=== PATIENT | female | born 1950 | race Caucasian/White ===

== ENCOUNTER 2021-04-04 01:08 | Emergency (ER) | payer MEDICARE ==
[2021-04-04] MEDS ORDERED: NIFEDIPINE ER30 M3 PO (01:23)
[2021-04-04] MEDS ORDERED: CEPHALEXIN250 MG PO (02:22)
[2021-04-04 02:32] VITALS: BP 154/90
== END 2021-04-04 02:32 | disposition home or self-care (01) ==
LOC: ED 01:08 → EDSEX 01:08 → ED 01:50
DX: S41.111A Laceration without foreign body of right upper arm, initial encounter (principal); Z87.891 Personal history of nicotine dependence; W10.8XXA Fall (on) (from) other stairs and steps, initial encounter